=== PATIENT | female | born 1960 | race Caucasian/White ===

== ENCOUNTER 2017-11-15 16:03 | Inpatient (IN) | payer OTHER ==
[~2017-11-15] VITALS: Ht 162.6 cm; Wt 74.8 kg
[2017-11-18] MEDS ORDERED: FERROUS SULFAT140 MG PO (09:34)
== END 2017-11-26 13:42 | disposition home or self-care (01) | DRG 470 ==
LOC: O/R 11-24 06:39 → SURH 11-24 07:15 → SURG 11-24 15:25 → SURH 11-26 09:57
PROVIDERS: Orthopaedic Surgery
PROC: 0SRD0J9 Replacement of Left Knee Joint with Synthetic Substitute, Cemented, Open Approach (ICD-10-PCS; principal; 2017-11-24 13:00)
DX: M17.12 Unilateral primary osteoarthritis, left knee (principal)